=== PATIENT | female | born 1950 | race Hispanic/Latino ===

== ENCOUNTER → 2017-09-20 | Outpatient (CLI) | payer MEDICARE | END | disposition home or self-care (01) | LOC: RAH 10:10 | PROVIDERS: ATTEND Internal Medicine | DX: E04.2 Nontoxic multinodular goiter (principal) | CPT/HCPCS: 76536 ==

== ENCOUNTER → 2019-05-03 | Outpatient (CLI) | payer MEDICARE | END | disposition home or self-care (01) | LOC: RAH 08:33 | PROVIDERS: ATTEND Internal Medicine | DX: E04.2 Nontoxic multinodular goiter (principal) | CPT/HCPCS: 76536 ==

== ENCOUNTER → 2022-07-28 | Outpatient (CLI) | payer OTHER, MEDICARE | END | disposition home or self-care (01) | LOC: RAH 08:33 | PROVIDERS: ATTEND Internal Medicine | DX: E04.2 Nontoxic multinodular goiter (principal); I73.9 Peripheral vascular disease, unspecified | CPT/HCPCS: 76536; 93925 ==

== ENCOUNTER → 2023-11-29 | Outpatient (CLI) | payer OTHER, MEDICARE | END | disposition home or self-care (01) | LOC: RAH 10:10 | PROVIDERS: ATTEND Internal Medicine | DX: E04.2 Nontoxic multinodular goiter (principal) | CPT/HCPCS: 76536 ==

== ENCOUNTER → 2025-01-17 | Outpatient (CLI) | payer OTHER, MEDICAID ==
--- NOTE | 2025-01-18 08:05 | HMCIMG ---
EXAMINATION: ULTRASOUND OF THE THYROID. CLINICAL HISTORY: Non toxic multinodular goiter. COMPARISON: Ultrasound of the thyroid dated 11/29/2023. TECHNIQUE: Transverse and longitudinal images were obtained through both lobes and the isthmus of the thyroid. FINDINGS: The thyroid gland is normal in caliber with homogenous tissue echotexture. The right thyroid lobe measures 4.0 x 1.6 x 1.4 cm and the left thyroid lobe measures 3.8 x 1.6 x 1.4 cm in the craniocaudal, AP, and transverse dimensions respectively. The isthmus measures 0.29 cm in AP dimension. Right lobe: There is a hypoechoic mixed solid cystic nodule that measures 0.4 x 0.3 x 0.5 cm at the mid pole (TR3). Left lobe: There is a hypoechoic mixed solid cystic nodule that measures 0.5 x 0.4 x 0.4 cm at the mid pole (TR3). There is a hypoechoic solid nodule that measures 0.7 x 0.4 x 0.6 cm in the lower pole (TR4). No significantly enlarged lymph nodes. IMPRESSION: Nodules in both lobes of the thyroid. No significant interval changes. TI-RADS follow up recommendations: TR1: no FNA required TR2: no FNA required TR3: more than or equal to 1.5 cm follow up, more than or equal to 2.5 cm FNA follow up: 1, 3 and 5 years TR4: more than or equal to 1.0 cm follow up, more than or equal to 1.5 cm FNA follow up: 1, 2, 3 and 5 years TR5: more than or equal to 0.5 cm follow up, more than or equal to 1.0 cm FNA annual follow up for up to 5 years /[place]
--- NOTE | 2025-01-18 08:05 | HMCIMG ---
EXAMINATION: ULTRASOUND OF THE ABDOMEN WITH COLOR DOPPLER. CLINICAL HISTORY: Increased LFT. COMPARISON: None. TECHNIQUE: Real-time grayscale ultrasound images of the abdomen. In addition, color Doppler is medically necessary to perform in order to evaluate vascularity and blood flow. FINDINGS: Liver: Bulky in caliber, the right hepatic lobe measures 17.0 cm in the craniocaudal dimension. There is increased echogenicity of the hepatic parenchyma. There is no intrahepatic biliary ductal dilatation. There is normal spectral Doppler of the main portal vein. There is a hyperechoic lesion that measures 4.2 x 3.4 x 5.2 cm in the right lobe. Gallbladder: Within normal limits with normal wall thickness (0.31 cm). No hyperemia or pericholecystic free fluid. There are small mobile calculi. Common bile duct is normal in caliber, measuring 0.62 cm. Spleen is normal in caliber and measures 9.3 x 3.1 x 4.6 cm in craniocaudal, AP and transverse dimensions respectively. No focal lesions. Pancreas: Normal in caliber and echotexture. No calcification or dilated pancreatic duct. The kidneys are normal in caliber, the right kidney measures 9.7 x 3.9 x 3.7 cm and the left kidney measures 10.1 x 4.6 x 4.7 cm in craniocaudal, AP, and transverse dimensions respectively. There is normal renal cortical thickness, and cortical echogenicity. There is no renal calculus or hydronephrosis. The abdominal aorta is normal in caliber with mild atherosclerosis. Inferior vena cava is not well visualized. IMPRESSION: Hepatomegaly with hepatic steatosis. Hyperechoic lesion in the right lobe of the liver, of concern for hemangioma. Cholelithiasis. No cholecystitis. Recommend MRI abdomen with contrast. /[place]
== END | disposition home or self-care (01) ==
LOC: RAH 07:55
PROVIDERS: ATTEND Internal Medicine
DX: K76.0 Fatty (change of) liver, not elsewhere classified (principal); K80.20 Calculus of gallbladder without cholecystitis without obstruction; E04.2 Nontoxic multinodular goiter; R16.0 Hepatomegaly, not elsewhere classified; I70.0 Atherosclerosis of aorta; R79.89 Other specified abnormal findings of blood chemistry
CPT/HCPCS: 76536; 76700